=== PATIENT | male | born 1975 | race Caucasian/White ===

== ENCOUNTER 2019-09-24 12:09 | Inpatient (IN) | payer OTHER ==
[~2019-09-24] VITALS: Ht 177.8 cm; Wt 116.5 kg
[2019-09-24] MEDS ORDERED: CIPRO500 MG PO (12:27)
[2019-09-24] MEDS ORDERED: METRONIDAZOLE500 MG PO (12:28)
--- NOTE | 2019-09-24 14:00 | NUR ---
PT RECEIVED FROM ED. PT ON ROOM AIR, LUNG SOUNDS CLEAR, DENIES SOB. PT RATING PAIN LOW 2-3/10, DULL ACHE TO LEFT LOWER QUADRANT. CMS INTACT. IV ROCEPHIN AND FLAGYL GIVEN PER ORDER, LR INFUSING AT 125ML/HR. BOWEL TONES ACTIVE, DENIES NAUSEA, PROVIDED CLEAR LIQUIDS PER DR. LORD. ADMISSION INTAKE AND ASSESSMENT COMPLETED. PT DENIES OTHER NEEDS AT THIS TIME.
--- NOTE | 2019-09-24 16:10 | NUR ---
IV CEFEPIME STARTED PER ORDER. PT DARY DE LA CRUZ IN ROOM, UPDATED ON PLAN OF CARE AND PT CONDITION. PT DENIES OTHER NEEDS AT THIS TIME.
--- NOTE | 2019-09-24 17:17 | NUR ---
PATIENT RESTING IN BED. VITAL SIGNS AND I&O DONE. CALL LIGHT WITHIN REACH. NO OTHER NEEDS AT THIS TIME
--- NOTE | 2019-09-24 18:14 | NUR ---
PT ADMITTED FROM ED. PT ON ROOM AIR, LUNG SOUNDS CLEAR. PT WITH MILD PAIN, HAS NOT REQUIRED PAIN MEDICATION. D5LR INFUSING AT 100 ML/HR, RECEIVED FLAGYL, ROCEPHIN AND CEFEPIME. PT UP INDEPENDENT IN ROOM. TOLERATING CLEAR LIQUID DIET.
--- NOTE | 2019-09-24 18:54 | NUR ---
CALL LIGHT ANSWERED. PATIENT GOES TO WALK IN THE HALLWAY. ONE PERSON ASSISTING. PATIENT BACKS TO BED. ICE WATER GIVEN. CALL LIGHT WITHIN REACH. NO OTHER NEEDS AT THIS TIME
--- NOTE | 2019-09-24 20:02 | NUR ---
PATIENT SITTING IN BED WATCHING TV AND READUNG A BOOK. NO NEEDS AT THIS TIME. CALL LIGHT IN REACH.
--- NOTE | 2019-09-24 21:17 | NUR ---
EXAMINING CHAIR ASSEMBLER ROUNDING NOTE. PT SITTING IN BED. DENIES QUESTIONS OR CONCERNS AT THIS TIME. WHITE BOARD UPDATED. CALL LIGHT WITHIN REACH.
--- NOTE | 2019-09-24 21:27 | NUR ---
PATIENT STILL SITTING UP IN BED WATCHING TV. WATER GLASS FILLED AND CHARTED. PATIENT HAD NO OTHER NEEDS AND NO C/O PAIN. CALL LIGHT IN REACH.
--- NOTE | 2019-09-24 23:20 | NUR ---
PATIENT AWAKE WATCHING TV. PATIENT IS TAKING IN PO FLUIDS REALLY WELL. REFILLED BOTH HIS GLASSES WITH ICE WATER. PATIENT HAD NO OTHER NEEDS. CALL LIGHT IN REACH.
--- NOTE | 2019-09-25 03:00 | NUR ---
PATIENT HASN'T REALLY SLEPT YET AND HAS NOT COMPLAINED OF PAIN AND IS UP TAKING A FEW LAPS AROUND THE [address]. NO NEEDS AT THIS TIME.
--- NOTE | 2019-09-25 03:51 | NUR ---
Patient has been up several time and has walked about the halls, indepentdent in room. fresh water has tree given to patient several time. call light in reach
--- NOTE | 2019-09-25 04:32 | NUR ---
PATIENT SAID HE SLEPT A LITTLE,AND STILL DRINKING A LOT OF WATER. PATIENT ABD PAIN IS 1/10. PATIENT WATCHING TV AT THIS TIME, WATER GLASSES FILLED. CALL LIGHT IN REACH. NO OTHER NEEDS.
--- NOTE | 2019-09-25 05:08 | NUR ---
PATIENT ONLY IN 11/26 ABD PAIN NOW. HE HAS ONLY SLEPT A LITTLE TONIGHT AND HE SAYS HIS SLEEP SCHEDULE IS A LITTLE MESSED UP. PATIENT HAS BEEN UP WALKING AT TIMES. IN BED WITH SCD'S ON WHEN IN BED. PATIENT IS DRINKING A LOT OF WATER, WHICH HE SAYS IS NORMAL FOR HIM AND INFORMED ME THAT NORMALLY HE ONLY VOIDS 3 TIMES A DAY. HAS VOIDED 600MLS SINCE 10PM AT ONE TIME. PATIENT SAYS HE IS FEELING MUCH BETTER, CALL LIGHT IN REACH AND IS WATCHING TV.
--- NOTE | 2019-09-25 06:17 | CONS ---
[facility] [address] [facility] [place] [address] Signed DATE OF CONSULTATION: 09/24/2019 CHIEF COMPLAINT: Left lower quadrant abdominal pain. HISTORY OF PRESENT ILLNESS: Forest is a 44-year-old gentleman I know from several years ago when we repaired his umbilical hernia with small piece of mesh. 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 He said he thinks he has had trouble with his diverticulitis over the years. Although this last time it was pretty painful, so [facility]. He was tender in the left lower quadrant, so he was given Cipro and Flagyl and asked to have a CT scan on September 21, 2019. I personally reviewed those images along with the report. He clearly has diverticulitis with the abscess on the side. It measures out 47 x 15 x 29 mm. There is one small air bubble in that area. He said also he was constipated and he took multiple bottles of magnesium citrate and eventually got himself pooping and he said he actually felt better. He said he has been slowly improving with his Cipro and Flagyl. However, he has a family member apparently, who is involved in as a healthcare provider. There was concern that may be he needed to present to the ER for a more thorough evaluation. Dr. Machado had seen him earlier today and white count is 7.6, and he is a little tender in the left lower quadrant. He seems to have hypertension and a little tachycardic, so I was asked to admit him as a general surgeon on-call. In the meantime, he did receive a dose of Rocephin and Flagyl. He told me he has not been eating big meals, but he has been doing softer food and seems to be doing fine and he continues to have bowel movements. PAST MEDICAL HISTORY: Diverticulitis. PAST SURGICAL HISTORY: Umbilical hernia repair with mesh and bilateral PE tubes as a child. SOCIAL HISTORY: He does not smoke. He has a drink once in a while. He is now . He has no children. He works maintenance for the [employer] and also does lawn care on the side. His brother is Milad Lang at [phone]. He prefers the [facility]. Dr. Alisa Garcia is his primary care provider. FAMILY HISTORY: Mom of an PR. Dad had a stroke, but also had Alzheimer disease and eventually of pneumonia. REVIEW OF SYSTEMS: Electronically Signed By: PATRICK LORD MD 09/25/19 0617 PATIENT NAME: FOREST LANG CONSULTATION DATE OF : 75 REPORT #: [id number] PHYSICIAN: PATRICK LORD MD PCP: ALISA GARCIA MD REPORT IS CONFIDENTIAL AND NOT TO BE RELEASED WITHOUT AUTHORIZATION [facility] [address] [place] [id number] Signed Forest had 10 systems reviewed and really pretty healthy mayda. There was really nothing new to add. ALLERGIES: Penicillin, sulfa, and codeine. MEDICATIONS: Cipro and Flagyl. PHYSICAL EXAMINATION: VITAL SIGNS: Blood pressure 173/102, his heart rate is 100, respiratory rate 18, his temperature is 98.8, he is 94% to 97% on room air. He is 5 feet 10 inches, 116 kg. GENERAL: Forest is a 44-year-old gentleman, lying supine in his hospital bed. Our nurse Julianne is with us. He does not appear systemically ill or toxic. LUNGS: Generally clear to auscultation bilaterally. HEART: Regular rate and rhythm. ABDOMEN: Moderately protuberant at baseline. It is generally soft. I can see the well-healed surgical scar from the umbilical hernia repair. He has minimal pain in the left lower quadrant to palpation. He said in his mind, it is markedly better. It was close to a 7 or 8/10, now it is down about a 3/10. LABORATORY DATA: His white blood count 7.6, hemoglobin 14. Electrolytes none. RADIOGRAPHIC STUDIES: A CT scan of the abdomen and pelvis was performed on September 21, 2019. I reviewed those images along with the report. He clearly has this diverticulitis with an abscess measuring 47 x 15 x 29 mm against the left pelvic sidewall. There is a small gas bubble. ASSESSMENT AND PLAN: Forest is a 44-year-old gentleman, who presents with sigmoid diverticulitis and an abscess. He certainly seems to be getting better on the Cipro, Flagyl. At this point, I think we will go ahead and let him have some clear liquids and we will give him IV antibiotics here for a day or two and see if he is not getting better. Hopefully, we can get him through this and consider a colonoscopy. I explained to Forest there is still concern for younger patients that they probably ought to have their colon resected even for a single episode of diverticulitis. Certainly, he has small abscess and that makes it more complicated. Of course, he prefer a one-stage procedure over a two-staged procedure as everyone does. At this point, I think he is doing fine. We will treat him conservatively for the time being and we will proceed based on his clinical course. He has expressed understanding and agrees above plan. Electronically Signed By: PATRICK LORD MD 09/25/19 0617 PATIENT NAME: FOREST LANG CONSULTATION DATE OF : 75 REPORT #: [id number] PHYSICIAN: PATRICK LORD MD PCP: ALISA GARCIA MD REPORT IS CONFIDENTIAL AND NOT TO BE RELEASED WITHOUT AUTHORIZATION [address], [place] [address] Signed MD ROSALIA Yuan/STEFANIL /[id number] cc: MD Patrick Ta MD Copies: ALISA GARCIA MD, ANDREW L MD ~ Electronically Signed By: PATRICK LORD MD 09/25/19 0617 PATIENT NAME: FOREST LANG CONSULTATION DATE OF : 75 REPORT #: [id number] PHYSICIAN: PATRICK LORD MD PCP: ALISA GARCIA MD REPORT IS CONFIDENTIAL AND NOT TO BE RELEASED WITHOUT AUTHORIZATION
--- NOTE | 2019-09-25 07:10 | NUR ---
BEDSIDE HANDOFF REPORT RECEIVED FROM HEAD OF TRAINING AND DEVELOPMENT RN. PT RESTING IN BED. PT DENIES NEEDS AT THIS TIME.
--- NOTE | 2019-09-25 09:30 | NUR ---
PT RESTING IN BED. PT WITH GOOD APPETITE, DENIES NAUSEA, BOWEL TONES ACTIVE. PT ON ROOM AIR, LUNG SOUNDS CLEAR. IV CEFEPIME INFUSION COMPLETED, SALINE LOCKED. PT WITHOUT EDEMA, CMS INTACT. PT PLANNING FOR DISCHARGE, DISCUSSED WITH PT. PT DENIES OTHER NEEDS AT THIS TIME.
--- NOTE | 2019-09-25 09:45 | NUR ---
DISCHARGE INSTRUCTIONS COMPLETED WITH PT. REVIEWED MEDICATIONS AND LOW FIBER DIET. IV CATH REMOVED. PT CALLED FOR RIDE AND WILL GET DRESSED. PT DENIES OTHER NEEDS AT THIS TIME.
--- NOTE | 2019-09-25 09:45 | NUR ---
D/C'D PATIENTS IV, DID DISCHARGE VITAL SIGNS, PATIENT IS CURRENTLY GETTING DRESSED AND WATIING FOR HIS TRANSPORTATION HOME
--- NOTE | 2019-09-25 21:33 | DS ---
[facility] [address] [place], [place] [address] Signed ADMISSION DATE: 09/24/2019 DISCHARGE DATE: 09/25/2019 FINAL DIAGNOSIS: Sigmoid diverticulitis with lqhsc-in-rjowcjkx-sized pericolonic abscess. PROCEDURE: None. HISTORY OF PRESENT ILLNESS: Curry is a 44-year-old gentleman whom I have known for several years. A little over a week ago, he developed significant left lower quadrant abdominal pain. He thought he was constipated. He took 5-7 bottles of magnesium citrate. Apparently, finally had several bowel movements. He said overall he thought he was feeling better, but the pain persisted. He finally went to the urgent care clinic and was placed on Cipro and Flagyl because of concerns for sigmoid diverticulitis. On September 21, 2019, he went over for a CT scan and sure enough he does have sigmoid diverticulitis with an abscess around 47 x 15 x 29 mm. It is up in the left pelvic sidewall. There was just a small air bubble there. He said each day he took the Cipro and Flagyl, he improved. He said initially his pain was an 8/10, now it is less than a 3/10 when I met him yesterday. He has a family member involved in healthcare bah who thought he should probably present to the ER and consider being observed in the hospital. Consequently, he came to our ER yesterday. HOSPITAL COURSE: Curry was seen in the emergency room yesterday and initially given some Rocephin and Flagyl. His white count was actually normal at 7.6. He had just a little tenderness in that left lower quadrant. His blood pressure was running a little high anywhere from the 130s up into the 170s. His heart rate tends to run between 60s, although up to 105. He said he has been on blood pressure medications in the past but none recently. He told me he is going to be seeing his primary care provider here in about a week or so. We let him have clear liquid diet yesterday, although he has been eating at home. We put him on cefepime and Flagyl. This morning, he said basically the pain is gone. He has had plenty of clear liquids and a good bowel movement this morning without any increased pain or difficulties. On exam, his abdomen is moderately protuberant, but again he has no pain. Repeat white count is 6.8. He came in with a white count of 7.6. He is mildly anemic with a hemoglobin of 12.8. Neutrophils are normal at 62. All electrolytes are fine. Given his progression, he was asking to go home. DISCHARGE PLANS AND MEDICATIONS: Curry told me he already has a 2nd week of Cipro and Flagyl at home. I asked him to go Electronically Signed By: PATRICK LORD MD 09/25/19 2133 PATIENT NAME: CURRY BELLO DISCHARGE SUMMARY DATE OF : 75 REPORT #: [id number] PHYSICIAN: PATRICK LORD MD PCP: ALISA DMAON MD REPORT IS CONFIDENTIAL AND NOT TO BE RELEASED WITHOUT AUTHORIZATION [facility] [address] [place] [id number] Signed ahead and finish that and he will come out with 10-14 days of antibiotics. He is going to maintain his followup appointment with his primary care provider in a week or so, not only for the diverticular disease, but for his hypertension and tachycardia. I asked Curry to come to my office in about 5-7 days to check on him. I reviewed with Curry the idea of diverticulosis. We will get this to settle down and somewhere between 8 and 12 weeks, we can perform a colonoscopy for him. If this would continue to give him trouble, obviously, he is going to need surgery. He is well aware of that and would prefer a one-stage procedure over a two-stage procedure. I have instructed him on kind of low-fiber, low-residue diet. He has already been doing that himself the last week. After 2-4 weeks when he is feeling better, he can certainly resume the fiber in his diet. He has expressed understanding and agrees above plan. Patrick Lord MD ALB/MODL /[id number] cc: MD Patrick Ta MD Copies: ALISA DAMON MD, ANDREW L MD ~ Electronically Signed By: PATRICK LORD MD 09/25/19 2133 PATIENT NAME: CURRY BELLO DISCHARGE SUMMARY DATE OF : 75 REPORT #: [id number] PHYSICIAN: PATRICK LORD MD PCP: ALISA DAMON MD REPORT IS CONFIDENTIAL AND NOT TO BE RELEASED WITHOUT AUTHORIZATION
== END 2019-09-25 10:10 | disposition home or self-care (01) | DRG 392 ==
LOC: ED 12:09 → MS 13:01
PROVIDERS: ADMIT Colon & Rectal Surgery
DX: K57.20 Diverticulitis of large intestine with perforation and abscess without bleeding (principal); Z88.0 Allergy status to penicillin; Z88.5 Allergy status to narcotic agent; Z88.2 Allergy status to sulfonamides
CPT/HCPCS: 36415; 80048; 80053; 83735; 84100; 85025; 99284; J0692; J0696; J1650; J7060; J7121

== ENCOUNTER 2019-11-25 06:31 | Day surgery (SDC) | payer OTHER ==
[~2019-11-25] VITALS: Ht 177.8 cm; Wt 121.1 kg
[~2019-11-25 06:31] MED LIST: CIPRO500 MG PO; METRONIDAZOLE500 MG PO
--- NOTE | 2019-11-25 07:44 | NUR ---
11/25/19 0744 Deborah Ford 3122-PATIENT ARRIVED TO PACU ON 2L NC RR EVEN. REACTIVE TO VERBAL STIMULI EYES OPEN LIFTING HEAD. LAYING LEFT LATERAL. ABDOMEN SOFT. IVF INFUSING. PATIENT VERY DROWSY BACK TO SLEEP.
--- NOTE | 2019-11-25 10:16 | OR ---
[facility] [address] [place], [place] [address] Signed DATE OF OPERATION: 11/25/2019 SURGEON: Patrick Lord MD PREOPERATIVE DIAGNOSIS: Recent sigmoid diverticulitis. POSTOPERATIVE DIAGNOSIS: Cnly-bq-whgdqbso de leon-diverticulosis. PROCEDURE: Colonoscopy without biopsy. ESTIMATED BLOOD LOSS: None. INDICATIONS: Curry is a 44-year-old gentleman who I have actually known for several years. We just had him in the hospital with diverticulitis. He had a mgqjn-dx-ilcwtqlt sized pericolonic abscess along the sigmoid colon. It contained a small bubble of air. He had been on Cipro and Flagyl as an outpatient, had been doing much better. We kept him just one night in the hospital and we sent him home the next day. He finished up two weeks total of his Cipro and Flagyl. Overall, he was feeling much better. We had him in the office twice and he seemed to have resolved all the pain. I had given him a brochure on diverticulosis and we looked at that in great detail. He understands the medical versus surgical treatment of the diverticular disease. We also discussed colonoscopy in detail. He has a pamphlet on colonoscopy to review. He understands there is risk including, but not limited to gas bloating, crampy abdominal pain, bleeding, perforation requiring surgery, and missed diagnosis. He also understands the need for IV conscious sedation. He had expressed understanding and wished to proceed. PROCEDURE NOTE: Curry was taken into our endoscopy suite and placed in the left lateral decubitus position. He was given a total of 10 mg of Versed and 200 mcg of fentanyl to cover the case. Even then, he woke up a couple of times during the procedure, but overall responded quite nicely to the medication. A digital rectal exam was performed and this was unremarkable. Curry is a big mayda and I could just barely touch the bottom of his prostate gland. No obvious findings there. The adult colonoscope had been introduced and advanced around into the cecum under direct visualization. It took extra sedation and abdominal compression in order to advance the scope. His prep was good. We took Electronically Signed By: PATRICK LORD MD 11/25/19 1016 PATIENT NAME: CURRY BELLO OPERATIVE REPORT DATE OF : 75 REPORT #: [id number] PHYSICIAN: PATRICK LORD MD PCP: ALISA DAMON MD REPORT IS CONFIDENTIAL AND NOT TO BE RELEASED WITHOUT AUTHORIZATION [facility] [address] [place], [place] [address] Signed pictures throughout for photodocumentation. He does have gasa-dd-bvcdtins de leon-diverticulosis. He has moderate-sized diverticula and they are scattered throughout the colon. We carefully examined all the way down through the sigmoid colon. Again, he has diverticular disease, but we saw no evidence of any inflammation whatsoever. Once in the rectum, the scope had been retroflexed. There was no additional pathology noted above the anal canal. After this, the gas was suctioned out and the colonoscope removed. Curry tolerated his procedure quite well. RECOMMENDATIONS: Curry had called our office last week, asking for a repeat course of Cipro, Flagyl, concerned that he might be getting recurrent pain in the left lower quadrant. He has two more days to finish that. We are going to have him back in the office in about a week for followup. If he is still having trouble, he might need a repeat CT scan to check his sigmoid colon. In the end, he may or may not need surgery depending on his clinical course. Patrick Lord MD ALB/MODL /[id number] cc: MD Alisa Yuan MD Copies: PATRICK LORD MD, JONATHAN MD ~ Electronically Signed By: PATRICK LORD MD 11/25/19 1016 PATIENT NAME: CURRY BELLO OPERATIVE REPORT DATE OF : 75 REPORT #: [id number] PHYSICIAN: PATRICK LORD MD PCP: ALISA DAMON MD REPORT IS CONFIDENTIAL AND NOT TO BE RELEASED WITHOUT AUTHORIZATION
== END 2019-11-25 08:25 | disposition home or self-care (01) ==
LOC: DS 06:31 → OPS 06:31 → DS 06:45 → OPS 06:45
PROVIDERS: Colon & Rectal Surgery
PROC: 0DJD8ZZ Inspection of Lower Intestinal Tract, Via Natural or Artificial Opening Endoscopic (ICD-10-PCS; principal; 2019-11-25 06:45)
DX: K57.30 Diverticulosis of large intestine without perforation or abscess without bleeding (principal); Z88.0 Allergy status to penicillin; Z88.2 Allergy status to sulfonamides; Z88.5 Allergy status to narcotic agent; Z79.2 Long term (current) use of antibiotics
CPT/HCPCS: 99153; G0500; J2250; J3010; J7121

== ENCOUNTER 2021-10-23 19:14 | Emergency (ER) | payer OTHER ==
[~2021-10-23] VITALS: Ht 177.8 cm; Wt 121.1 kg
== END 2021-10-23 20:30 | disposition home or self-care (01) ==
LOC: ED 19:14
DX: T23.131A Burn of first degree of multiple right fingers (nail), not including thumb, initial encounter (principal); T31.0 Burns involving less than 10% of body surface; X13.1XXA Other contact with steam and other hot vapors, initial encounter; Z23 Encounter for immunization; Z88.2 Allergy status to sulfonamides; Z88.0 Allergy status to penicillin; Z88.5 Allergy status to narcotic agent
CPT/HCPCS: 16000; 90471; 90715; 99283-25